=== PATIENT | female | born 1980 | race Caucasian/White ===

== ENCOUNTER 2018-05-28 19:47 | Emergency (ER) | payer MEDICAID, OTHER ==
--- NOTE | 2018-05-28 20:17 | EDPHY ---
H & P Stated Complaint: sore throat since saturday Time Seen by Provider: 05/28/18 20:16 HPI/ROS: HPI: This is a 37-year-old female who presents with Chief Complaint: Sore throat since Saturday Location: Throat Quality: Sore Duration: Since Saturday Signs and Symptoms: + fever, no nausea, no vomiting, no diarrhea, no urinary symptoms, no chest pain, no shortness of breath, no wheezing, no cough, no sore throat, no neck stiffness, no joint pain, no swollen glands, no ear pain, no rash, no drooling Timing: Acute Severity: Moderate Context: Patient reports that for the last week she has a sore throat with no cough. She reports that she has difficulty speaking and eating or drinking. She was seen at the [facility] yesterday and started on Augmentin liquid suspension. She reports that she has taken the medication 3 times. The rapid strep was negative yesterday. Modifying Factors: See above Comment: ROS: A comprehensive 10 system review of systems is otherwise negative aside from elements mentioned in the history of present illness. MEDICAL/SURGICAL/SOCIAL HISTORY: Medical history: History of Pneumonia. LMP 1-7 days ago. Surgical history: right arm surgery, surgery on left lung Social history: Never smoked. Family history noncontributory. CONSTITUTIONAL: Well-developed, well-nourished nontoxic-appearing female, awake and alert, no obvious distress HEENT: Atraumatic and normocephalic, PERRL, EOMI. Nares patent; no rhinorrhea; no nasal mucosal edema. Tympanic membranes clear. Oropharynx clear, tonsils 3 + on the right and 2+ on the left with white exudate; uvula midline; dry oral mucosa, halitosis. Airway patent. Able to open up mouth 2 finger widths. + anterior cervical lymphadenopathy. No meningismus. Cardiovascular: Normal S1/S2, tachycardia, regular rhythm, without murmur rub or gallop. PULMONARY/CHEST: Symmetrical and nontender. Clear to auscultation bilaterally. Good air movement. No accessory muscle usage. ABDOMEN: Soft, nondistended, nontender, no rebound, no guarding, no peritoneal signs, no masses or organomegaly. No CVAT. EXTREMITIES: 2/2 pulses, strength 5/5, no deformities, no clubbing, no cyanosis or edema. NEUROLOGICAL: no focal neuro deficits. GCS 15. Muffled voice. SKIN: Warm and dry, no erythema. no rash. Good capillary refill. Source: Patient Exam Limitations: No limitations - Personal History LMP (Females 10-55): 1-7 Days Ago Current Tetanus/Diphtheria Vaccine: Yes Current Tetanus Diphtheria and Acellular Pertussis (TDAP): Yes Tetanus Vaccine Date: 2018 - Medical/Surgical History Hx Asthma: No Hx Chronic Respiratory Disease: No Hx Diabetes: No Hx Cardiac Disease: No Hx Renal Disease: No Hx Cirrhosis: No Hx Alcoholism: No Hx HIV/AIDS: No Hx Splenectomy or Spleen Trauma: No Other PMH: Pneumonia, right arm surgery, surgery on left lung - Social History Smoking Status: Never smoked Constitutional: Initial Vital Signs Temperature (C) 37.1 C 05/28/18 19:49 Heart Rate 123 H 05/28/18 19:49 Respiratory Rate 16 05/28/18 19:49 Blood Pressure 116/81 H 05/28/18 19:49 O2 Sat (%) 96 05/28/18 19:49 O2 Delivery Mode Room Air Allergies/Adverse Reactions: No Known Allergies Allergy (Verified 05/28/18 19:53) Home Medications: Medication Instructions Recorded Amoxicillin/Clavulanate Pot 05/28/18 Dexamethasone [Decadron 4 MG (*)] 8 mg PO DAILY 2 Days tab 05/28/18 Medical Decision Making - Diagnostics Imaging Results: Imaging Impressions Neck CT 05/28/18 20:22 Impression: Right tonsillar abscess as described. Amanda Wilson was notified of these findings by telephone at 9:38 PM on 05/28/2018 ED Course/Re-evaluation: Vital signs reviewed and show tachycardia upon arrival. IV access, laboratory studies, CT soft tissue neck ordered Patient given 1 L normal saline, IV Toradol 30 mg, IV Decadron 10 mg and IV ceftriaxone 1 g 2109: Labs reviewed. WBC 14 K with left shift. Rapid strep negative. 2138: Called by radiologist, Dr. Puga, who reported that CT neck soft tissue scan shows 13 mm x 7 mm right tonsillar abscess with no airway compromise. 2199: Reassessed patient who reports moderate relief of symptoms and able to talk without pain. Offered patient admission and she is insistent on going home if at all possible. No signs of airway compromise/malocclusion. 2204: ED decision to consult ENT. 2245: ENT repaged. 2330: Spoke with Dr. Calderon regarding the small peritonsillar abscess but patient requesting to be discharged home. She has no signs of airway compromise or sepsis. He advised to give a prescription for Decadron 8 mg daily for the next 2 days and to continue the Augmentin. She is to call his office tomorrow morning between 8 and 8:30 a.m. [phone] to be seen tomorrow. This patient was seen under the supervision of my secondary supervising physician. I evaluated care for this patient with attending. Discussed this patient with Dr. Erazo who did not see the patient. Differential Diagnosis: Differential diagnosis includes but is not limited to viral pharyngitis, strep pharyngitis, tonsillar abscess. - Data Points Laboratory Results: Laboratory Results 05/28/18 20:29 05/28/18 20:29 05/28/18 05/28/18 05/28/18 Unknown 20:30 20:29 WBC RBC Hgb Hct MCV MCH MCHC RDW Plt Count MPV Neut % (Auto) Lymph % (Auto) [place] % (Auto) Eos % (Auto) Baso % (Auto) Nucleat RBC Rel Count Absolute Neuts (auto) Absolute Lymphs (auto) Absolute Monos (auto) Absolute Eos (auto) Absolute Basos (auto) Absolute Nucleated RBC Immature Gran % Immature Gran # Sodium Potassium Chloride Carbon Dioxide Anion Gap BUN Creatinine Estimated GFR Glucose Calcium Beta HCG, Qual NEGATIVE Group A Strep Screen NEGATIVE (NEGATIVE) Group A Strep DNA Pending 05/28/18 05/28/18 20:29 20:29 WBC 13.89 10^3/uL H 10^3/uL (3.80-9.50) RBC 4.80 10^6/uL 10^6/uL (4.18-5.33) Hgb 13.8 g/dL g/dL (12.6-16.3) Hct 41.4 % % (38.0-47.0) MCV 86.3 fL fL (81.5-99.8) MCH 28.8 pg pg (27.9-34.1) MCHC 33.3 g/dL g/dL (32.4-36.7) RDW 13.3 % % (11.5-15.2) Plt Count 266 10^3/uL 10^3/uL (150-400) MPV 10.8 fL fL (8.7-11.7) Neut % (Auto) 79.5 % H % (39.3-74.2) Lymph % (Auto) 11.5 % L % (15.0-45.0) [place] % (Auto) 7.8 % % (4.5-13.0) Eos % (Auto) 0.4 % L % (0.6-7.6) Baso % (Auto) 0.4 % % (0.3-1.7) Nucleat RBC Rel Count 0.0 % % (0.0-0.2) Absolute Neuts (auto) 11.03 10^3/uL H 10^3/uL (1.70-6.50) Absolute Lymphs (auto) 1.60 10^3/uL 10^3/uL (1.00-3.00) Absolute Monos (auto) 1.09 10^3/uL H 10^3/uL (0.30-0.80) Absolute Eos (auto) 0.06 10^3/uL 10^3/uL (0.03-0.40) Absolute Basos (auto) 0.05 10^3/uL 10^3/uL (0.02-0.10) Absolute Nucleated RBC 0.00 10^3/uL 10^3/uL (0-0.01) Immature Gran % 0.4 % % (0.0-1.1) Immature Gran # 0.06 10^3/uL 10^3/uL (0.00-0.10) Sodium 135 mEq/L mEq/L (135-145) Potassium 3.7 mEq/L mEq/L (3.5-5.2) Chloride 101 mEq/L mEq/L (97-110) Carbon Dioxide 23 mEq/l mEq/l (22-31) Anion Gap 11 mEq/L mEq/L (6-14) BUN 11 mg/dL mg/dL (7-23) Creatinine 0.6 mg/dL mg/dL (0.6-1.0) Estimated GFR > 60 Glucose 94 mg/dL mg/dL (70-100) Calcium 9.5 mg/dL mg/dL (8.5-10.4) Beta HCG, Qual Group A Strep Screen Group A Strep DNA Medications Given: Discontinued Medications Dexamethasone (Decadron Injection) 10 mg IVP EDNOW ONE Stop: 05/28/18 20:25 Last Admin: 05/28/18 20:31 Dose: 10 mg Ceftriaxone Sodium/Dextrose (Rocephin 1 Gm (Premix)) 50 mls @ 100 mls/hr IV EDNOW ONE PRN Reason: Protocol Stop: 05/28/18 20:51 Last Admin: 05/28/18 20:34 Dose: 50 mls Sodium Chloride (Ns) 1,000 mls @ 0 mls/hr IV ONCE ONE; Wide Open PRN Reason: Protocol Stop: 05/28/18 20:23 Last Admin: 05/28/18 20:36 Dose: 1,000 mls Ketorolac Tromethamine (Toradol) 30 mg IVP EDNOW ONE Stop: 05/28/18 20:25 Last Admin: 05/28/18 20:32 Dose: 30 mg Departure - Departure Disposition: Home, Routine, Self-Care Clinical Impression: Tonsillar abscess Condition: Good Instructions: Peritonsillar Abscess (ED) Additional Instructions: Consume a minimum of 8-10 glasses of water or electrolyte fluid replacement drinks that include Gatorade, Powerade, Pedialyte. Take Tylenol 650 mg every 4 hours and/or Ibuprofen 600 mg every 8 hours with food as needed for pain. Use Percocet every 6 hours as needed for severe/break through pain. Do not use Tylenol and Percocet concomitantly. Continue to take antibiotic as directed. Take Decadron 8 mg daily starting tomorrow for the next [address] Calderon's office ([phone]) in the morning between 8 and 8:30 a.m. For your appointment time tomorrow. Follow-Up: Please follow-up as noted above. Follow-up sooner if your condition worsens or if you develop any new problems. Call as soon as possible for an appointment. Be clear when you call for an appointment that this is an Emergency Department follow-up. Contact the Emergency Department if you have trouble arranging follow-up care. Our referrals are not based on your insurance network. When time allows, contact your insurance carrier to verify the referral physician is in your plan. If not, get a referral for an in-network operations analyst. Referrals: Tuyet Montejo [Primary Care Provider] - As per Instructions Malachi Calderon MD [Medical Doctor] - As per Instructions Prescriptions: Dexamethasone [Decadron 4 MG (*)] 8 mg PO DAILY 2 Days tab
[2018-05-28] MEDS ORDERED: NS 1,000 ML IV ONE (20:22)
[2018-05-28] MEDS ORDERED: DEXAMETHASONE 10 MG/ML VIAL IVP ONE (20:24)
[2018-05-28] MEDS ORDERED: KETOROLAC 30 MG/1 ML SDV IVP ONE (20:24)
[2018-05-28] MEDS ORDERED: IOPAMIDOL (ISOVUE-300) 100 ML BTL ONE (20:28)
[2018-05-28 20:44] LABS: PLATELET COUNT 266 10^3/uL (150-400)
[2018-05-28] MEDS ORDERED: OXYCODONE/APAP 5/325MG PREPACK#4 BTL TAKEHOME ONE (23:35)
[2018-05-28 23:52] VITALS: BP 110/72
== END 2018-05-28 23:51 | disposition home or self-care (01) ==
DX: J36 Peritonsillar abscess (principal); Z87.01 Personal history of pneumonia (recurrent)
CPT/HCPCS: 96365; J0696; J1100; J1885; Q9967